=== PATIENT | female | born 1985 | race African-American/Black ===

== ENCOUNTER 2016-05-05 16:40 | Emergency (ER) | payer SELFPAY ==
[~2016-05-05] VITALS: Ht 165.1 cm; Wt 65.0 kg
[2016-05-05] MEDS ORDERED: DIPHENHYDRAMINE 50 MG INJ IV STA (16:49)
[2016-05-05] MEDS ORDERED: ONDANSETRON 4 MG INJ IV STA (16:49)
[2016-05-05 16:51] VITALS: Ht 165.1 cm; Wt 65.0 kg
[2016-05-05] MEDS ORDERED: DEXAMETHASONE 10 MG/ML 1 ML INJ IV ONE (17:00)
[2016-05-05 17:26] LABS: HEMATOCRIT 30.7 % (37.0-47.0); HEMOGLOBIN 9.2 g/dl (12.0-16.0); MEAN CORPUSCULAR HEMOGLOBIN 17.6 pg (29.0-33.0); MEAN CORPUSCULAR VOLUME 58.6 fl (82.0-101.0); MEAN PLATELET VOLUME 12.9 fl (7.4-10.4); PLATELET COUNT 329 10^3/UL (140-440); RED BLOOD COUNT 5.24 10^6/ul (4.20-5.40); RED CELL DISTRIBUTION WIDTH 22.3 % (11.5-14.5)
[2016-05-05 17:29] LABS: CONDITION 1; LH ANALYZER COMMENTS 1; SUSPECT 1
[2016-05-05 17:33] LABS: CREATININE 0.68 mg/dl (0.44-1.00)
[2016-05-05 17:34] LABS: CALCIUM 9.2 mg/dl (8.4-10.2)
[2016-05-05 17:38] LABS: INR 1.07; PARTIAL THROMBOPLASTIN TIME 28.3 Sec (25.0-35.0); PROTIME 13.9 Sec (12.2-14.2); PT RATIO 1.1
[2016-05-05 17:49] LABS: LYMPHOCYTES # 2.3 10^3/ul (0.8-2.9); MONOCYTE # 0.3 10^3/ul (0.3-0.9); NEUTROPHIL # 2.5 10^3/ul (1.6-7.5)
[2016-05-05 17:53] LABS: BURR CELLS 1+; OVALOCYTES 1+; TEAR DROP CELLS 1+
--- NOTE | 2016-05-05 18:05 | RADRPT ---
PROCEDURE: CT Brain without contrast. CLINICAL INDICATION: Headache, seizure TECHNIQUE: Routine CT scan of the brain was performed on a high resolution multi detector scanner without intravenous contrast. One or more of the following dose reduction techniques were used: Auto mated exposure control; Adjustment of the mA and/or kV according to patient size; Use of iterative r econstruction technique. CTDI = 44 mGy. DLP = 740 mGy-cm. COMPARISON: No prior relevant examinations are available for comparison. FINDINGS: Hemorrhage: No evidence of intracranial hemorrhage. Acute ischemic changes: No evidence of acute ischemic changes. Mass effect/Midline shift: None. Parenchymal volume: Within normal limits for age. Ventricular system: Concordant with parenchymal volume. Chronic changes: Parenchymal attenuation is within normal limits. Extracranial soft tissues: Unremarkable. Calvarium: No fractures. Paranasal sinuses: Visualized paranasal sinuses are clear. Mastoid air cells: Visualized mastoid air cells are clear. IMPRESSION: No acute intracranial abnormalities. Normal appearance the brain parenchyma MRI of the brain may be useful for further evaluation. RPTAT: AADD .Pramod Fitch MD, MD Date Time Electronically viewed and signed by .Pramod Fitch MD, MD on 05/05/2016 18:05 .B/
[2016-05-05] MEDS ORDERED: FIORICET PO (18:15)
--- NOTE | 2016-05-05 18:15 | ERD ---
ER Documentation Chief Complaint Date/Time DATE: 05/05/16 TIME: 18:12 Chief Complaint Seizure yesterday aox4 now HPI This is a 30-year-old female presents to the emergency room for evaluation of a seizure. This patient states that she does not have a history of seizures, she states that she had a seizure yesterday, one seizure today, she states that she was conscious during the seizure, and remembers having a seizure, and she remembers looking at the clock and timing along her seizures were. The patient states that now she has a mild headache which she localizes to the left portion of her head, she describes as an achy pain. She states she does not have any blurred vision or ringing in her ears associated with this. She denies any trauma to her head. ROS All systems reviewed and are negative except as per history of present illness. Medications Home Meds No Active Prescriptions or Reported Meds Allergies Allergies: Coded Allergies: Penicillins (Verified Allergy, Unknown, 05/05/16) PMhx/Soc Medical and Surgical Hx: pt denies Medical Hx, pt denies Surgical Hx Hx Alcohol Use: No Hx Substance Use: No Hx Tobacco Use: No Smoking Status: Current every day smoker Physical Exam Vitals Vital Signs Date Time Temp Pulse Resp B/P Pulse Ox O2 Delivery O2 Flow Rate FiO2 05/05/16 16:51 98.1 78 20 130/86 97 Physical Exam INITIAL VITAL SIGNS: Reviewed by me GENERAL: The patient is well developed and appropriate for usual state of health in no apparent distress HEENT: Pupils equal, round, and reactive to light. EOMI. There is no scleral icterus. NECK: C-spine is soft and supple, there is no meningismus. There is no cervical lymphadenopathy. LUNGS: Clear to auscultation bilaterally. There are no rales, wheezes or rhonchi. HEART: Regular rate and rhythm, no murmurs, clicks, rubs or gallops. ABDOMEN: Soft, non-tender, non-distended. There are bowel sounds in all four quadrants. No rebound or guarding. EXTREMITIES: There is no peripheral cyanosis or edema. No focal swelling or erythema. NEUROLOGICAL: The patient moves all four extremities with 5/5 strength. Cranial nerves II - XII are intact. Normal gait. Alert and oriented SKIN: There is no apparent rash or petechiae. HEME/LYMPHATIC: There is no evidence of excessive bruising or lymphedema. PSYCHIATRIC: The patient has a flat affect Result Diagram: 05/05/16 1703 05/05/16 1703 Results 24 hrs Laboratory Tests Test 05/05/16 17:03 Activated Partial Thromboplast Time 28.3Sec Anion Gap 17 Blood Morphology Comment Blood Urea Nitrogen 6mg/dl Calcium Level 9.2mg/dl Carbon Dioxide Level 24mmol/L Chloride Level 106mmol/L Creatinine 0.68mg/dl Glucose Level 86mg/dl Hematocrit 30.7% Hemoglobin 9.2g/dl INR International Normalized Ratio 1.07 Large Platelets 1+ Lymphocytes # 2.310^3/ul Lymphocytes % 46.0% Macrocytosis 1+ Mean Corpuscular Hemoglobin 17.6pg Mean Corpuscular Hemoglobin Concent 30.0g/dl Mean Corpuscular Volume 58.6fl Mean Platelet Volume 12.9fl Monocytes # 0.310^3/ul Monocytes % 5.0% Neutrophils # 2.510^3/ul Neutrophils % 49.0% Ovalocytes 1+ Platelet Count 14041^3/UL Potassium Level 4.0mmol/L Prothrombin Time 13.9Sec Prothrombin Time Ratio 1.1 Red Blood Count 5.2410^6/ul Red Cell Distribution Width 22.3% Sodium Level 143mmol/L Tear Drop Cells 1+ White Blood Count 5.010^3/ul Current Medications Medications (Trade) Dose Ordered Sig/Davonte Route PRN Reason Start Time Stop Time Status Last Admin Dose Admin Ondansetron HCl (Zofran Inj) 4 mg ONCE STAT IV 05/05/16 16:49 05/05/16 16:51 DC 05/05/16 17:09 Diphenhydramine HCl (Benadryl) 25 mg ONCE STAT IV 05/05/16 16:49 05/05/16 16:51 DC 05/05/16 17:12 Dexamethasone (Decadron) 10 mg ONCE ONCE IV 05/05/16 17:00 05/05/16 17:01 DC 05/05/16 17:12 Procedures/MDM CT head without: No acute intracranial abnormalities. Normal appearance the brain parenchyma MRI of the brain may be useful for further evaluation. This 30-year-old female presents to the emergency room for evaluation of possible seizures. This patient states that she was conscious and awake during her seizures and remembers them. I do not feel this patient actually had a seizure, rather she is suffering from complex migraine. She was given Benadryl , and Decadron here in the emergency room with almost complete resolution of her symptoms. This patient's CAT scan of her head is normal, she is alert and oriented to person place and time with no focal neurological deficits. This patient will be discharged home at this time with a prescription for Fioricet. Departure Diagnosis: Primary Impression: Migraine Additional Impression: Microcytic anemia Condition: Stable ARCADIO ORTIZ DO May 05, 2016 18:14
[2016-05-05 18:30] LABS: CANNABINOIDS Negative (NEGATIVE)
[2016-05-05 18:31] LABS: BARBITURATES Negative (NEGATIVE); BENZODIAZEPINES Negative (NEGATIVE); COCAINE Negative (NEGATIVE)
[2016-05-05 18:32] LABS: OPIATES Negative (NEGATIVE)
[2016-05-05 18:46] VITALS: BP 118/73; PULSE 94; RESP 16; TEMP 98.9
== END 2016-05-05 18:48 | disposition home or self-care (01) ==
LOC: EDBD 16:40 → E/R 16:40
DX: G43.909 Migraine, unspecified, not intractable, without status migrainosus (principal); D50.9 Iron deficiency anemia, unspecified; F17.210 Nicotine dependence, cigarettes, uncomplicated
CPT/HCPCS: 36415; 70450; 80048; 80307; 85025; 85610; 85730; 96374; 96375; 99285; J1100; J1200; J2405

== ENCOUNTER 2016-05-30 12:40 | Emergency (ER) | payer MEDICAID ==
[~2016-05-30] VITALS: Wt 81.0 kg
[~2016-05-30 12:40] MED LIST: FIORICET PO
[2016-05-30 15:20] LABS: ADD UMIC YES; URINE BILIRUBIN (Dip) NEGATIVE (NEGATIVE); URINE BLOOD (Dip) 1+ (NEGATIVE); URINE COLOR LT. YELLOW (YELLOW); URINE GLUCOSE (Dip) NEGATIVE (NEGATIVE); URINE KETONES (Dip) NEGATIVE (NEGATIVE); URINE LEUKOCYTE ESTERASE (Dip) NEGATIVE (NEGATIVE); URINE NITRITE (Dip) NEGATIVE (NEGATIVE); URINE TOTAL PROTEIN (Dip) NEGATIVE (NEGATIVE); URINE UROBILINOGEN (Dip) 0.2 E.U./dL (0.1-1.0)
[2016-05-30 15:24] LABS: HEMOGLOBIN 9.4 g/dl (12.0-16.0); MEAN CORPUSCULAR HEMOGLOBIN 17.7 pg (29.0-33.0); MEAN CORPUSCULAR HGB CONC 29.4 g/dl (32.0-37.0); MEAN CORPUSCULAR VOLUME 60.3 fl (82.0-101.0); MEAN PLATELET VOLUME 12.8 fl (7.4-10.4); PLATELET COUNT 350 10^3/UL (140-440); RED BLOOD COUNT 5.32 10^6/ul (4.20-5.40); UNCORRECTED WBC 6.1 10^3/ul (4.8-10.8); WHITE BLOOD COUNT 6.1 10^3/ul (4.8-10.8)
[2016-05-30 15:29] LABS: ALBUMIN 4.3 g/dl (3.3-4.9); POTASSIUM 3.8 mmol/L (3.5-5.1)
[2016-05-30 15:31] LABS: BILIRUBIN,INDIRECT 0.1 mg/dl (0-1.1); BILIRUBIN,TOTAL 0.1 mg/dl (0.2-1.3); CREATININE 0.66 mg/dl (0.44-1.00)
[2016-05-30 15:32] LABS: ALBUMIN/GLOBULIN RATIO 1.48; CALCIUM 9.5 mg/dl (8.4-10.2); TOTAL PROTEIN 7.2 g/dl (6.1-8.1)
[2016-05-30 15:38] LABS: BACTERIA,URINE FEW; SQUAMOUS EPITHELIAL CELL,UR MODERATE; URINE RBCS 0-2 /HPF (0)
--- NOTE | 2016-05-30 15:39 | RADRPT ---
PROCEDURE: CT Brain without. CLINICAL INDICATION: Headache after fall. Seizure. TECHNIQUE: A CT of the brain was performed on a multi-slice CT scanner utilizing axial sections fr om the skull base through the vertex without contrast. Coronal and sagittal reconstructed images w ere provided. One or more of the following does reduction techniques were used: Automated exposure control; adjustment of the mA and/or kV according to patient size; use of the aorta of reconstructi on technique. Images were reviewed on a high-resolution PACS workstation. The exam CTDI = 44.52 mGy . The exam DLP = 720.23 mGy-cm. COMPARISON: CT brain 05/05/2016 FINDINGS: The ventricles and sulci are symmetric and normal in size and morphology. There is no evidence of i ntracranial hemorrhage, mass effect, edema or midline shift. No abnormal intra-axial or extra-axial fluid collections are seen. The pool/white matter differentiation is well preserved. The osseous structures and visualized sinuses are unremarkable. The mastoid air cells are clear. Th e surrounding soft tissue scalp and bony calvarium are intact and normal. IMPRESSION: 1. Stable CT appearance of the brain compared to 05/05/2016 without evidence of acute intracranial pathology. RPTAT: KK .Reji Batres MD, Date Time Electronically viewed and signed by .Reji Batres MD, MD on 05/30/2016 15:38 .B/
--- NOTE | 2016-05-30 15:41 | RADRPT ---
PROCEDURE: CT cervical spine without contrast CLINICAL INDICATION: Neck pain after trauma. Seizure. TECHNIQUE: CT scan of the cervical spine was performed on a multi-slice scanner. No IV contrast w as administered. Coronal and sagittal reformatted images were obtained from the axial source images . Images were reviewed on a high-resolution PACS workstation. Exam CTDI = 22.14 mGy. Exam DLP = 425 .92 mGy-cm. COMPARISON: None available FINDINGS: There is straightening and reversal of the normal cervical lordosis. Alignment is otherwise intact. No acute fracture or dislocation is seen. The vertebral body heights are all well preserved. Disc heights are well maintained. Posterior elements structures are intact. The paraspinous soft tissues are unremarkable. No mass, hematoma, or other soft tissue abnormality is seen. IMPRESSION: 1. No CT evidence of acute fracture or subluxation. 2. Nonspecific straightening and reversal of the normal cervical lordosis. RPTAT: KK .Reji Batres MD, MD Date Time Electronically viewed and signed by .Reji Batres MD, on 05/30/2016 15:41 .B/
[2016-05-30 15:56] LABS: CONDITION 1; LH ANALYZER COMMENTS 1; SUSPECT 1
[2016-05-30 16:36] LABS: EOSINOPHILS # 0.1 10^3/ul (0.0-0.5); MONOCYTE # 0.4 10^3/ul (0.3-0.9); NEUTROPHIL # 4.6 10^3/ul (1.6-7.5)
[2016-05-30] MEDS ORDERED: MECL12.574 PO (16:57)
[2016-05-30] MEDS ORDERED: HYDR-906 PO (16:57)
[2016-05-30] MEDS ORDERED: FER325 PO (17:00)
--- NOTE | 2016-05-30 17:13 | ERD ---
ER Documentation Chief Complaint Date/Time DATE: 05/30/16 TIME: 17:08 Chief Complaint DIZZINESS AND FELL YESTERDAY. NECK AND LEFT ARM PAIN TODAY. R SIDE BENAVIDES. HPI This is a 30-year-old female presents to the ER stating that 2 days ago she began to feel dizzy and that she fell because of dizziness. Patient is also complaining of right-sided headache and facial pain. She is also complaining of neck pain and left arm pain that started today. States that she was here about one month ago after having a seizure. When she had the seizure she states she remembers entire seizure and was tightening seizure. Patient states that a week after she was seen here she had a second seizure however she was sleeping and didn't remember the seizure. She denies any nausea vomiting or diarrhea. She denies any loss of consciousness from her fall 2 days ago. She did not hit her head. She had a past medical she had migraines. She does smoke cigarettes. Patient never had a past medical history of seizures. ROS 12 point review of systems was done, all negative except per HPI. Medications Home Meds Active Scripts Ferrous Sulfate* (Ferrous Sulfate*) 325 Mg Tabec, 325 MG PO BID for 30 Days, TAB Prov:DWAIN,WAYNE C 05/30/16 Hydrocodone/Acetaminophen ([place] 5-325 Tablet) 1 Each Tablet, 1 TAB PO Q6H Y for PAIN, #10 TAB Prov:DWAIN,WAYNE C 05/30/16 Meclizine Hcl* (Antivert*) 12.5 Mg Tab, 12.5 MG PO Q6H Y for DIZZINESS, #20 TAB Prov:DWAINWAYNE C 05/30/16 Acetamin/Butalbital/Caffeine* (Fioricet*) [id number] Tab, 1 TAB PO Q6H Y for PAIN, #12 TAB Prov:ARCADIO ORTIZ DO 05/05/16 Allergies Allergies: Coded Allergies: Penicillins (Verified Allergy, Unknown, 05/30/16) PMhx/Soc Medical and Surgical Hx: pt denies Medical Hx, pt denies Surgical Hx Hx Alcohol Use: No Hx Substance Use: No Hx Tobacco Use: No Smoking Status: Never smoker Physical Exam Vitals Vital Signs Date Time Temp Pulse Resp B/P Pulse Ox O2 Delivery O2 Flow Rate FiO2 05/30/16 13:02 98.5 122 20 128/74 99 Physical Exam GENERAL: The patient is well developed and appropriate for usual state of health , in no apparent distress. HEENT: Atraumatic. Conjunctivae are pink. Pupils equal, round, and reactive to light. Extraocular muscles are grossly intact. Bilateral tympanic membranes are clear with no evidence of erythema, bulging or perforation. No sinus tenderness. NECK: C-spine is soft and supple. There is no cervical lymphadenopathy. CHEST: Clear to auscultation bilaterally. There are no rales, wheezes or rhonchi. HEART: Regular rate and rhythm. No murmurs, clicks, rubs or gallops. EXTREMITIES: Equal pulses bilaterally. There is no peripheral clubbing, cyanosis or edema. No focal swelling or erythema. Full range of motion. Grossly neurovascularly intact. NEURO: Alert and oriented. Cranial nerves II through XII are intact. Motor strength in all 4 extremities with 5/5 strength. Sensation grossly intact. Normal speech and gait. Negative Rhomberg. +2 DTRs. SKIN: There is no apparent rash or petechia. The skin is warm and dry. Result Diagram: 05/30/16 1455 05/30/16 1455 Results 24 hrs Laboratory Tests Test 05/30/16 14:55 Alanine Aminotransferase (ALT/SGPT) 29IU/L Albumin 4.3g/dl Albumin/Globulin Ratio 1.48 Alkaline Phosphatase 86IU/L Anion Gap 18 Aspartate Amino Transf (AST/SGOT) 21IU/L Blood Morphology Comment Blood Urea Nitrogen 5mg/dl Calcium Level 9.5mg/dl Carbon Dioxide Level 23mmol/L Chloride Level 108mmol/L Creatinine 0.66mg/dl Direct Bilirubin 0.00mg/dl Eosinophils # 0.110^3/ul Eosinophils % 2.0% Globulin 2.90g/dl Glucose Level 101mg/dl Hematocrit 32.0% Hemoglobin 9.4g/dl Indirect Bilirubin 0.1mg/dl Lymphocytes # 1.010^3/ul Lymphocytes % 16.0% Mean Corpuscular Hemoglobin 17.7pg Mean Corpuscular Hemoglobin Concent 29.4g/dl Mean Corpuscular Volume 60.3fl Mean Platelet Volume 12.8fl Monocytes # 0.410^3/ul Monocytes % 6.0% Neutrophils # 4.610^3/ul Neutrophils % 76.0% Platelet Count 31962^3/UL Potassium Level 3.8mmol/L Red Blood Count 5.3210^6/ul Red Cell Distribution Width 23.0% Sodium Level 145mmol/L Total Bilirubin 0.1mg/dl Total Protein 7.2g/dl Urine Bacteria FEW Urine Bilirubin NEGATIVE Urine Clarity SL.HAZY Urine Color LT. YELLOW Urine Glucose NEGATIVE% Urine Hemoglobin 1+ Urine Ketones NEGATIVE Urine Leukocyte Esterase NEGATIVE Urine Microscopic RBC 0-2/HPF Urine Microscopic WBC 0-2/HPF Urine Nitrite NEGATIVE Urine Specific [place] 1.020 Urine Squamous Epithelial Cells MODERATE Urine Total Protein NEGATIVE Urine Urobilinogen 0.2 E.U./dL Urine pH 6.0 White Blood Count 6.110^3/ul Procedures/MDM Differential Diagnosis includes but is not limited to; tension headache, migraine headache, cluster headache, sinus headache, nonspecific febrile headache, trigeminal neurologia, subdural hematoma, subarachnoid bleeding, meningitis, encephalitis. Patient is neurologically intact with no focal neurological deficits. Patient likely has a migraine headache. Patient has a history of migraine headaches. She is neurologically intact with no focal neurological deficits. Constipation neck pain and arm pain likely muscular in nature. CT scan and no evidence of abnormalities. Patient has full range of motion of her left shoulder, elbow, wrist and is nontender to palpation. Suspicion for seizure is low. Patient states she was awake throughout her entire seizure the first time and that she was asleep during the second closure. Discussed this case with my supervising physician Dr. Driscoll. She did have any new which could give her some dizziness. She'll be sent home with iron. EKG was done and read by [address] elevation no t wave inversion. CT scan was normal. Doubt acute intracranial pathology. Patient needs to follow-up with her primary care doctor return to ER sooner symptoms worsen. She was also told to follow-up with a neurologist as soon as possible. Departure Diagnosis: Primary Impression: Headache Condition: Stable Patient Instructions: Self-Care for Headaches Additional Instructions: Call your primary care doctor TOMORROW for an appointment during the next 1-2 days.See the doctor sooner or return here if your condition worsens before your appointment time. WAYNE PRAKASH May 30, 2016 17:13
[2016-05-30 18:00] VITALS: BP 130/76; PULSE 86; RESP 20; TEMP 98.7
== END 2016-05-30 18:06 | disposition home or self-care (01) ==
LOC: FTE 12:40
DX: R51 Headache (principal); S19.9XXA Unspecified injury of neck, initial encounter; S59.912A Unspecified injury of left forearm, initial encounter; F17.210 Nicotine dependence, cigarettes, uncomplicated; W19.XXXA Unspecified fall, initial encounter; Y92.9 Unspecified place or not applicable
CPT/HCPCS: 70450; 72125; 80053; 81001; 81003; 85025; 93005

== ENCOUNTER 2016-10-21 08:53 | Outpatient (CLI) | payer MEDICAID ==
[~2016-10-21] VITALS: Ht 167.6 cm; Wt 91.0 kg
[~2016-10-21 08:53] MED LIST changes: +FER325 PO; +HYDR-906 PO; +MECL12.574 PO
[2016-10-21 09:11] VITALS: Ht 167.6 cm; Wt 91.0 kg
[2016-10-21] MEDS ORDERED: PRENAT PO (09:11)
[2016-10-21 09:12] VITALS: BP 120/63; PULSE 104; RESP 18
[2016-10-21 10:15] LABS: ADD UMIC YES; UR ASCORBIC ACID NEGATIVE (NEGATIVE); UR BACTERIA FEW /HPF (NONE SEEN); UR BILIRUBIN (Dip) NEGATIVE (NEGATIVE); UR BLOOD (Dip) 3+ mg/dL (NEGATIVE); UR CLARITY CLOUDY (CLEAR); UR COLOR YELLOW (YELLOW); UR GLUCOSE (Dip) NEGATIVE (NEGATIVE); UR KETONES (Dip) TRACE mg/dL (NEGATIVE); UR LEUKOCYTE ESTERASE (Dip) NEGATIVE Leu/ul (NEGATIVE); UR NITRITE (Dip) NEGATIVE (NEGATIVE); UR RBC 8 /HPF (0-5); UR SPECIFIC GRAVITY (Dip) 1.025 (1.003-1.030); UR SQUAMOUS EPITHELIAL CELL FEW /HPF (FEW); UR TOTAL PROTEIN (Dip) 1+ mg/dl (NEGATIVE); UR UROBILINOGEN (Dip) NEGATIVE (NEGATIVE)
--- NOTE | 2016-10-21 10:17 | RADRPT ---
PROCEDURE: Limited OB ultrasound CLINICAL INDICATION: labor. TECHNIQUE: Sonographic evaluation to assess the cervical length was performed. Transabdominal andrey ging of the gravid uterus was performed. COMPARISON: No prior exam is available for comparison. FINDINGS: There is a single live intrauterine with cardiac activity, with a heart rate o f 168 bpm. position is transverse with head to the maternal left. The placenta is anterior. The cervix is closed with a length of 4.8 cm. IMPRESSION: The cervix is closed with a length of 4.8 cm. RPTAT: HH .Jazmine Garcia MD, MD Date Time Electronically viewed and signed by .Jazmine Garcia MD, on 10/21/2016 10:16 .G/
--- NOTE | 2016-10-21 11:03 | TRIAGE ---
OB Triage Datetime Report Generated by CPN: 10/21/2016 11:03 Datetime: 10/21/2016 09:09 Assessment Type: Triage Maternal Assessment Level of Consciousness: Fully Conscious DTR's/Clonus: DTRs 2+; No Clonus Headache: Denies Blurred Vision: No Respiratory Effort: Unlabored; Regular Rhythm; Equal Expansion Breath Sounds, Left: Clear and Equal Breath Sounds, Right: Clear and Equal Nausea/Vomiting: Denies RUQ Epigastric Pain: Denies Lower Extremities Edema: None Degree: None Upper Extremities Edema: None Degree: None Facial Edema: None Fall Risk Assessment History of Falling: (0) No Secondary Diagnosis: (0) No Ambulatory Aid: (0) Bedrest/Nurse Assist IV Therapy: (0) No Gait: (0) Normal/Bedrest/Immobile Mental Status: (0) Oriented to Own Ability Fall Score: 0 Fall Risk Score Definition: No Risk: No action required Datetime: 10/21/2016 09:08 Time of Arrival: 10/21/2016 08:48 EGA: 20.4 Arrived By: Ambulatory Arrived From: Home Chief Complaint: C/O SPOTTING X 1 OCCURENCE THIS AM Movement: Present Contractions: Denies/Absent Rupture of Membranes: Denies Vaginal Bleeding: Scant Vaginal Discharge: Denies Recent Sexual Intercouse: Denies Abdominal Trauma: Not Applicable Patient Complaints: None Time Provider Notified: 10/21/2016 09:41 Provider Notified: TARI Initial Plan: C-TOCO, FHT'S VIA DOPPLER, U/S FOR CVL. UA Datetime: 10/21/2016 09:00 Labor Evaluation Monitor Mode: External Heart Rate Monitor Mode: Doppler Comments: FHT'S DOPPLED IN THE 150'S
--- NOTE | 2016-10-21 11:20 | QN ---
Documentation Comment pt co of some spotting X1 no log no Ucx good Fm vss exam wnl US wnl ua neg a/p iup 20 weeks false labor er precaution LORETTA MADRIGAL MD Oct 21, 2016 11:20
== END 2016-10-21 11:10 | disposition home or self-care (01) ==
LOC: OBT 08:53 → L-D 08:55 → OBT 11:10
PROVIDERS: ATTEND Obstetrics & Gynecology
DX: O26.852 Spotting complicating pregnancy, second trimester (principal); O62.9 Abnormality of forces of labor, unspecified; O47.02 False labor before 37 completed weeks of gestation, second trimester; Z3A.20 20 weeks gestation of pregnancy
CPT/HCPCS: 76817; 81001; Z7500; G0463

== ENCOUNTER 2016-12-10 07:48 | Emergency (ER) | payer MEDICAID ==
[~2016-12-10] VITALS: Ht 170.2 cm; Wt 68.0 kg
[~2016-12-10 07:48] MED LIST changes: -FER325 PO; -FIORICET PO; -HYDR-906 PO; -MECL12.574 PO; +PRENAT PO
[2016-12-10 07:50] VITALS: Ht 170.2 cm; Wt 68.0 kg
[2016-12-10] MEDS ORDERED: HALOPERIDOL 5 MG INJ IM ONE (08:30)
--- NOTE | 2016-12-10 08:30 | ERA ---
ER Documentation Chief Complaint Date/Time DATE: 12/10/16 TIME: 08:29 Chief Complaint states wants to hurt herself HPI This is a 31-year-old female who is 20 weeks with her third child. She says she is here for suicidal thoughts. Patient has a history of 3 suicide attempts in the past starting in the year 2007. The first attempt was by drinking toilet bowl wallpaper cleaner, second attempt was trying to jump out of the window, the third attempt was trying to cut herself. Patient states she has been having suicidal thoughts for a while. She says she is not sure if she has a specific plan at this time. But she does admit that she does not want to live currently. She denies any headache chest pain shortness of breath cough fever. She also denies any abdominal pain pelvic pain, vaginal bleeding, vaginal discharge, pelvic cramping. She is currently not taking any antidepressants ROS All systems reviewed and are negative except as per history of present illness. Medications Home Meds Reported Medications Multivit/Min/Fol Ac/Iron/Pren* ( S*) 1 Tab Tab, 1 TAB PO DAILY, TAB 10/21/16 Allergies Allergies: Coded Allergies: Penicillins (Verified Allergy, Unknown, 12/10/16) PMhx/Soc History of Surgery: No Anesthesia Reaction: No Hx Neurological Disorder: No Hx Respiratory Disorders: No Hx Cardiac Disorders: No Hx Psychiatric Problems: Yes (depression and anxiety) Hx Miscellaneous Medical Probl: No Hx Alcohol Use: No Hx Substance Use: Yes (marijuana) Hx Tobacco Use: Yes Smoking Status: Current every day smoker FmHx Family History: No coronary disease Physical Exam Vitals Vital Signs Date Time Temp Pulse Resp B/P Pulse Ox O2 Delivery O2 Flow Rate FiO2 12/10/16 08:23 100 12/10/16 07:50 98.2 120 18 125/72 99 Physical Exam Const: Well-developed, well-nourished Head: Atraumatic, normocephalic Eyes: Normal Conjunctiva, PERRLA, EOMI, normal sclera, no nystagmus ENT: Normal External Ears, Nose and Mouth, moist mucus membranes. Neck: Full range of motion. No meningismus, no lymphadenopathy. Resp: Clear to auscultation bilaterally, no wheezing, rhonchi, rales Cardio: Regular rate and rhythm, no murmurs, S1 S2 present Abd: Soft, non tender x 4,, gravid, non distended. Normal bowel sounds , no guarding or rebound, no pulsitile abdominal masses or bruits Skin: No petechiae or rashes, no ecchymosis , no maculopapular rash Back: No midline or flank tenderness Ext: No cyanosis, or edema, FROM x 4, normal inspection, neurovascularly intact x 4 Neur: Awake and alert, STR 5/5 x 4, sensation intact x 4, no focal findings, cerebellum intact Psych: Normal Mood and Affect Result Diagram: 12/10/16 0812 12/10/16 0812 Results 24 hrs Laboratory Tests Test 12/10/16 07:10 12/10/16 08:12 Urine Color YELLOW Urine Clarity CLOUDY Urine pH 6.0 Urine Specific [place] 1.012 Urine Ketones NEGATIVEmg/dL Urine Nitrite NEGATIVEmg/dL Urine Bilirubin NEGATIVEmg/dL Urine Urobilinogen NEGATIVEmg/dL Urine Leukocyte Esterase 1+[place]/ul Urine Microscopic RBC 1/HPF Urine Microscopic WBC 17/HPF Urine Squamous Epithelial Cells MODERATE/HPF Urine Mucus FEW/HPF Urine Hemoglobin NEGATIVEmg/dL Urine Glucose NEGATIVEmg/dL Urine Total Protein 1+mg/dl Urine Opiates Screen Negative Urine Barbiturates Negative Urine Amphetamines Screen Negative Urine Benzodiazepines Screen Negative Urine Cocaine Screen Negative Urine Cannabinoids Negative White Blood Count 10.510^3/ul Red Blood Count 4.9410^6/ul Hemoglobin 9.9g/dl Hematocrit 33.5% Mean Corpuscular Volume 67.8fl Mean Corpuscular Hemoglobin 20.0pg Mean Corpuscular Hemoglobin Concent 29.6g/dl Red Cell Distribution Width 21.1% Platelet Count 99503^3/UL Mean Platelet Volume fl Neutrophils % 80.1% Lymphocytes % 12.9% Monocytes % 5.4% Eosinophils % 0.8% Basophils % 0.3% Nucleated Red Blood Cells % 0.0/100WBC Neutrophils # (Manual) 8.410^3/ul Lymphocytes # 1.410^3/ul Monocytes # 0.610^3/ul Eosinophils # 0.110^3/ul Basophils # 0.010^3/ul Nucleated Red Blood Cells # 0.010^3/ul Sodium Level 137mmol/L Potassium Level 3.7mmol/L Chloride Level 108mmol/L Carbon Dioxide Level 20mmol/L Anion Gap 13 Blood Urea Nitrogen 6mg/dl Creatinine 0.60mg/dl Glucose Level 84mg/dl Calcium Level 9.3mg/dl Total Bilirubin 0.1mg/dl Direct Bilirubin 0.00mg/dl Indirect Bilirubin 0.1mg/dl Aspartate Amino Transf (AST/SGOT) 20IU/L Alanine Aminotransferase (ALT/SGPT) 25IU/L Alkaline Phosphatase 97IU/L Total Protein 7.1g/dl Albumin 3.8g/dl Globulin 3.30g/dl Albumin/Globulin Ratio 1.15 Salicylates Level < 1.0mg/dl Acetaminophen Level < 10.0ug/ml Ethyl Alcohol Level < 10.0mg/dl Current Medications Medications (Trade) Dose Ordered Sig/Davonte Route PRN Reason Start Time Stop Time Status Last Admin Dose Admin Haloperidol (Haldol) 2.5 mg ONCE ONCE IM 12/10/16 08:30 12/10/16 08:31 Cancel Procedures/MDM We will order labs and sonogram to evaluate the fetus. We will have telemetry psychiatry evaluation and try to find a location for inpatient admission for suicidal patient Dr. Maldonado spoke with the patient and the patient will be admitted to inpatient psychiatry Departure Diagnosis: Primary Impression: Suicidal ideation Condition: Stable LARS SEWELL DO Dec 10, 2016 08:30
--- NOTE | 2016-12-10 09:06 | RADRPT ---
PROCEDURE: US OB. CLINICAL INDICATION: Size and dates TECHNIQUE: Multiple sonographic images of the pelvis and gravid uterus were obtained. The images were reviewed on a PACS workstation. COMPARISON: 10/21/2016 FINDINGS: There is a single viable intrauterine gestation. Cardiac activity is present with 140 beats per min [place] band. There is a vertex presentation. The placenta is anterior. There is no evidence for an abruption or placenta previa. MVP = 7.2 cm. Measurements were made in order to determine age. The results are as follows: BPD =6.6 cm HC =24.9 cm AC =23.9 cm FL =5.0 cm Estimated gestational age of approximately 27 weeks and 1 day based on ultrasound measurements. Clinical age: 28 weeks and 0 days. The estimated date of delivery is 03/10/17, based on ultrasound measurements. The EFW = 1087 g, 21%, based on LMP age. There are no adnexal masses. RPTAT: AA IMPRESSION: Single viable intrauterine gestation of approximately 27 weeks and 1 day based on ultrasound measur ements. .Jaswant Watters MD, MD Date Time Electronically viewed and signed by .Jaswant Watters MD, MD on 12/10/2016 09:06 .S/
--- NOTE | 2016-12-10 10:46 | PSY ---
Date/Time of Note Date/Time of Note DATE: 12/10/16 TIME: 10:42 Psychiatric Subjective Eval Consent Pt consented to telemedicine: Yes Subjective Evaluation Patient location: emergency Chief Complaint: states wants to hurt herself History of present illness 31 yo homeless AAF presentis to ED c/o Si w/o a plan. Pt is 28 wks . She is depressed, hopeless and helpless due to homelessness, no support. Pt denies Hi, no ah or vh. Poor sleep, low energy, low motivation, guilt. Past psychiatric history pt had inpt 2007; hx 3 SA, last one was 2007 Hospitalization: Suicidal Attempt(s) Family History denies Medical history Problems Medical Problems: (1) Headache Status: Acute (2) Microcytic anemia Status: Acute (3) Migraine Status: Acute (4) Suicidal ideation Status: Acute Allergies: Coded Allergies: Penicillins (Verified Allergy, Unknown, 12/10/16) Substance Abuse Substance use: No known substance abuse Social History Marital status: single Level of education: 10th DPA/Conservatorship: No Occupation/Care Home: unemployed, homeless, hx multiple arrests and incarcerations Psychiatric Objective Eval Physical Examination: Sleep: Insomnia Appetite: Decreased Energy: Decreased Interest: Decreased Mental Status Examination: Appearance: Disheveled Eye Contact: Good Psychomotor Activity: Normal Behavior: Cooperative Speech: Clear AFFECT: Depressed Mood: Depressed Though Process: Linear Thought Content: Normal Suicidal: Yes Homicidal: No On 72 hour hold: No Orientation: x4 Cognition: Alert Insight: Impared Judgement: Impared Laboratory Results Laboratory Tests Test 12/10/16 07:10 12/10/16 08:12 Urine Color YELLOW Urine Clarity CLOUDY Urine pH 6.0 Urine Specific [place] 1.012 Urine Ketones NEGATIVEmg/dL Urine Nitrite NEGATIVEmg/dL Urine Bilirubin NEGATIVEmg/dL Urine Urobilinogen NEGATIVEmg/dL Urine Leukocyte Esterase 1+[place]/ul Urine Microscopic RBC 1/HPF Urine Microscopic WBC 17/HPF Urine Squamous Epithelial Cells MODERATE/HPF Urine Mucus FEW/HPF Urine Hemoglobin NEGATIVEmg/dL Urine Glucose NEGATIVEmg/dL Urine Total Protein 1+mg/dl Urine Opiates Screen Negative Urine Barbiturates Negative Urine Amphetamines Screen Negative Urine Benzodiazepines Screen Negative Urine Cocaine Screen Negative Urine Cannabinoids Negative White Blood Count 10.510^3/ul Red Blood Count 4.9410^6/ul Hemoglobin 9.9g/dl Hematocrit 33.5% Mean Corpuscular Volume 67.8fl Mean Corpuscular Hemoglobin 20.0pg Mean Corpuscular Hemoglobin Concent 29.6g/dl Red Cell Distribution Width 21.1% Platelet Count 48366^3/UL Mean Platelet Volume fl Neutrophils % 80.1% Lymphocytes % 12.9% Monocytes % 5.4% Eosinophils % 0.8% Basophils % 0.3% Nucleated Red Blood Cells % 0.0/100WBC Neutrophils # (Manual) 8.410^3/ul Lymphocytes # 1.410^3/ul Monocytes # 0.610^3/ul Eosinophils # 0.110^3/ul Basophils # 0.010^3/ul Nucleated Red Blood Cells # 0.010^3/ul Sodium Level 137mmol/L Potassium Level 3.7mmol/L Chloride Level 108mmol/L Carbon Dioxide Level 20mmol/L Anion Gap 13 Blood Urea Nitrogen 6mg/dl Creatinine 0.60mg/dl Glucose Level 84mg/dl Calcium Level 9.3mg/dl Total Bilirubin 0.1mg/dl Direct Bilirubin 0.00mg/dl Indirect Bilirubin 0.1mg/dl Aspartate Amino Transf (AST/SGOT) 20IU/L Alanine Aminotransferase (ALT/SGPT) 25IU/L Alkaline Phosphatase 97IU/L Total Protein 7.1g/dl Albumin 3.8g/dl Globulin 3.30g/dl Albumin/Globulin Ratio 1.15 Salicylates Level < 1.0mg/dl Acetaminophen Level < 10.0ug/ml Ethyl Alcohol Level < 10.0mg/dl Assessment and Plan Assessment/Diagnosis [place] I: MAJOR DEPRESSIVE DISORDER RECURRENT SEVERE [place] II: DEFERED [place] III: 28 WKS [place] IV: SEVERE [place] V: GAF 25 Recommendation/Plan Medication Management DEFER TO INPT Psychotherapy DEFER TO INPT Follow-up/Disposition DTS; PLEASE TRANSFER TO INPT PSYCH. PT CAN ACCEPT INPT VOLUNTARY BUT CAN BE PLACED ON 5105 IF NEEDED FOR TRANSFER. [id number] Recommendation: ALLYSON JAY MD Dec 10, 2016 10:46
--- NOTE | 2016-12-10 10:46 | PSY ---
Date/Time of Note Date/Time of Note DATE: 12/10/16 TIME: 10:42 Psychiatric Subjective Eval Consent Pt consented to telemedicine: Yes Subjective Evaluation Patient location: emergency Chief Complaint: states wants to hurt herself History of present illness 31 yo homeless AAF presentis to ED c/o Si w/o a plan. Pt is 28 wks . She is depressed, hopeless and helpless due to homelessness, no support. Pt denies Hi, no ah or vh. Poor sleep, low energy, low motivation, guilt. Past psychiatric history pt had inpt 2007; hx 3 SA, last one was 2007 Hospitalization: Suicidal Attempt(s) Family History denies Medical history Problems Medical Problems: (1) Headache Status: Acute (2) Microcytic anemia Status: Acute (3) Migraine Status: Acute (4) Suicidal ideation Status: Acute Allergies: Coded Allergies: Penicillins (Verified Allergy, Unknown, 12/10/16) Substance Abuse Substance use: No known substance abuse Social History Marital status: single Level of education: 10th DPA/Conservatorship: No Occupation/Long Term: unemployed, homeless, hx multiple arrests and incarcerations Psychiatric Objective Eval Physical Examination: Sleep: Insomnia Appetite: Decreased Energy: Decreased Interest: Decreased Mental Status Examination: Appearance: Disheveled Eye Contact: Good Psychomotor Activity: Normal Behavior: Cooperative Speech: Clear AFFECT: Depressed Mood: Depressed Though Process: Linear Thought Content: Normal Suicidal: Yes Homicidal: No On 72 hour hold: No Orientation: x4 Cognition: Alert Insight: Impared Judgement: Impared Laboratory Results Laboratory Tests Test 12/10/16 07:10 12/10/16 08:12 Urine Color YELLOW Urine Clarity CLOUDY Urine pH 6.0 Urine Specific [place] 1.012 Urine Ketones NEGATIVEmg/dL Urine Nitrite NEGATIVEmg/dL Urine Bilirubin NEGATIVEmg/dL Urine Urobilinogen NEGATIVEmg/dL Urine Leukocyte Esterase 1+[place]/ul Urine Microscopic RBC 1/HPF Urine Microscopic WBC 17/HPF Urine Squamous Epithelial Cells MODERATE/HPF Urine Mucus FEW/HPF Urine Hemoglobin NEGATIVEmg/dL Urine Glucose NEGATIVEmg/dL Urine Total Protein 1+mg/dl Urine Opiates Screen Negative Urine Barbiturates Negative Urine Amphetamines Screen Negative Urine Benzodiazepines Screen Negative Urine Cocaine Screen Negative Urine Cannabinoids Negative White Blood Count 10.510^3/ul Red Blood Count 4.9410^6/ul Hemoglobin 9.9g/dl Hematocrit 33.5% Mean Corpuscular Volume 67.8fl Mean Corpuscular Hemoglobin 20.0pg Mean Corpuscular Hemoglobin Concent 29.6g/dl Red Cell Distribution Width 21.1% Platelet Count 58719^3/UL Mean Platelet Volume fl Neutrophils % 80.1% Lymphocytes % 12.9% Monocytes % 5.4% Eosinophils % 0.8% Basophils % 0.3% Nucleated Red Blood Cells % 0.0/100WBC Neutrophils # (Manual) 8.410^3/ul Lymphocytes # 1.410^3/ul Monocytes # 0.610^3/ul Eosinophils # 0.110^3/ul Basophils # 0.010^3/ul Nucleated Red Blood Cells # 0.010^3/ul Sodium Level 137mmol/L Potassium Level 3.7mmol/L Chloride Level 108mmol/L Carbon Dioxide Level 20mmol/L Anion Gap 13 Blood Urea Nitrogen 6mg/dl Creatinine 0.60mg/dl Glucose Level 84mg/dl Calcium Level 9.3mg/dl Total Bilirubin 0.1mg/dl Direct Bilirubin 0.00mg/dl Indirect Bilirubin 0.1mg/dl Aspartate Amino Transf (AST/SGOT) 20IU/L Alanine Aminotransferase (ALT/SGPT) 25IU/L Alkaline Phosphatase 97IU/L Total Protein 7.1g/dl Albumin 3.8g/dl Globulin 3.30g/dl Albumin/Globulin Ratio 1.15 Salicylates Level < 1.0mg/dl Acetaminophen Level < 10.0ug/ml Ethyl Alcohol Level < 10.0mg/dl Assessment and Plan Assessment/Diagnosis [place] I: MAJOR DEPRESSIVE DISORDER RECURRENT SEVERE [place] II: DEFERED [place] III: 28 WKS [place] IV: SEVERE [place] V: GAF 25 Recommendation/Plan Medication Management DEFER TO INPT Psychotherapy DEFER TO INPT Follow-up/Disposition DTS; PLEASE TRANSFER TO INPT PSYCH. PT CAN ACCEPT INPT VOLUNTARY BUT CAN BE PLACED ON 5105 IF NEEDED FOR TRANSFER. [id number] Recommendation: ALLYSON JAY MD Dec 10, 2016 10:46
--- NOTE | 2016-12-10 10:46 | PSY ---
Date/Time of Note Date/Time of Note DATE: 12/10/16 TIME: 10:42 Psychiatric Subjective Eval Consent Pt consented to telemedicine: Yes Subjective Evaluation Patient location: emergency Chief Complaint: states wants to hurt herself History of present illness 31 yo homeless AAF presentis to ED c/o Si w/o a plan. Pt is 28 wks . She is depressed, hopeless and helpless due to homelessness, no support. Pt denies Hi, no ah or vh. Poor sleep, low energy, low motivation, guilt. Past psychiatric history pt had inpt 2007; hx 3 SA, last one was 2007 Hospitalization: Suicidal Attempt(s) Family History denies Medical history Problems Medical Problems: (1) Headache Status: Acute (2) Microcytic anemia Status: Acute (3) Migraine Status: Acute (4) Suicidal ideation Status: Acute Allergies: Coded Allergies: Penicillins (Verified Allergy, Unknown, 12/10/16) Substance Abuse Substance use: No known substance abuse Social History Marital status: single Level of education: 10th DPA/Conservatorship: No Occupation/Senior Care: unemployed, homeless, hx multiple arrests and incarcerations Psychiatric Objective Eval Physical Examination: Sleep: Insomnia Appetite: Decreased Energy: Decreased Interest: Decreased Mental Status Examination: Appearance: Disheveled Eye Contact: Good Psychomotor Activity: Normal Behavior: Cooperative Speech: Clear AFFECT: Depressed Mood: Depressed Though Process: Linear Thought Content: Normal Suicidal: Yes Homicidal: No On 72 hour hold: No Orientation: x4 Cognition: Alert Insight: Impared Judgement: Impared Laboratory Results Laboratory Tests Test 12/10/16 07:10 12/10/16 08:12 Urine Color YELLOW Urine Clarity CLOUDY Urine pH 6.0 Urine Specific [place] 1.012 Urine Ketones NEGATIVEmg/dL Urine Nitrite NEGATIVEmg/dL Urine Bilirubin NEGATIVEmg/dL Urine Urobilinogen NEGATIVEmg/dL Urine Leukocyte Esterase 1+[place]/ul Urine Microscopic RBC 1/HPF Urine Microscopic WBC 17/HPF Urine Squamous Epithelial Cells MODERATE/HPF Urine Mucus FEW/HPF Urine Hemoglobin NEGATIVEmg/dL Urine Glucose NEGATIVEmg/dL Urine Total Protein 1+mg/dl Urine Opiates Screen Negative Urine Barbiturates Negative Urine Amphetamines Screen Negative Urine Benzodiazepines Screen Negative Urine Cocaine Screen Negative Urine Cannabinoids Negative White Blood Count 10.510^3/ul Red Blood Count 4.9410^6/ul Hemoglobin 9.9g/dl Hematocrit 33.5% Mean Corpuscular Volume 67.8fl Mean Corpuscular Hemoglobin 20.0pg Mean Corpuscular Hemoglobin Concent 29.6g/dl Red Cell Distribution Width 21.1% Platelet Count 12149^3/UL Mean Platelet Volume fl Neutrophils % 80.1% Lymphocytes % 12.9% Monocytes % 5.4% Eosinophils % 0.8% Basophils % 0.3% Nucleated Red Blood Cells % 0.0/100WBC Neutrophils # (Manual) 8.410^3/ul Lymphocytes # 1.410^3/ul Monocytes # 0.610^3/ul Eosinophils # 0.110^3/ul Basophils # 0.010^3/ul Nucleated Red Blood Cells # 0.010^3/ul Sodium Level 137mmol/L Potassium Level 3.7mmol/L Chloride Level 108mmol/L Carbon Dioxide Level 20mmol/L Anion Gap 13 Blood Urea Nitrogen 6mg/dl Creatinine 0.60mg/dl Glucose Level 84mg/dl Calcium Level 9.3mg/dl Total Bilirubin 0.1mg/dl Direct Bilirubin 0.00mg/dl Indirect Bilirubin 0.1mg/dl Aspartate Amino Transf (AST/SGOT) 20IU/L Alanine Aminotransferase (ALT/SGPT) 25IU/L Alkaline Phosphatase 97IU/L Total Protein 7.1g/dl Albumin 3.8g/dl Globulin 3.30g/dl Albumin/Globulin Ratio 1.15 Salicylates Level < 1.0mg/dl Acetaminophen Level < 10.0ug/ml Ethyl Alcohol Level < 10.0mg/dl Assessment and Plan Assessment/Diagnosis [place] I: MAJOR DEPRESSIVE DISORDER RECURRENT SEVERE [place] II: DEFERED [place] III: 28 WKS [place] IV: SEVERE [place] V: GAF 25 Recommendation/Plan Medication Management DEFER TO INPT Psychotherapy DEFER TO INPT Follow-up/Disposition DTS; PLEASE TRANSFER TO INPT PSYCH. PT CAN ACCEPT INPT VOLUNTARY BUT CAN BE PLACED ON 5105 IF NEEDED FOR TRANSFER. [id number] Recommendation: ALLYSON JAY MD Dec 10, 2016 10:46
[2016-12-10] MEDS ORDERED: FAMOTIDINE 20 MG INJ IV STA (22:00)
[2016-12-11 10:50] VITALS: BP 112/64; PULSE 70; RESP 18; TEMP 98.2
--- NOTE | 2016-12-11 12:19 | EN ---
Date/Time of Note Date/Time of Note DATE: 12/11/16 TIME: 12:17 ER Progress Note That she is not suicidal at this time. She is been reevaluated by tele-psych physician who states this patient can be discharged safely at this time. Patient does feel comfortable being discharged at this time with resources ARCADIO ORTIZ DO Dec 11, 2016 12:19
--- NOTE | 2016-12-11 13:05 | PSY ---
Date/Time of Note Date/Time of Note DATE: 12/11/16 TIME: 11:46 Psychiatric Subjective Eval Consent Pt consented to telemedicine: Yes Subjective Evaluation Patient location: emergency Chief Complaint: states wants to hurt herself Reason for consult: fear of being suicidal History of present illness This is a 31 year old female who has been homeless for the past year. She is also at 28 week gestation. She denied any history of problems with substance use. She presented to the ED in hopes of getting treatment as well as assistance for housing. She states that she has had a history of recurrent depression. She states veronika she has been feeling progressively more depressed while homeless and . She said that she came to the ED as she was concerned for the safety of her and the child. She was seen and evaluated by Dr. Maldonado, who recommended that the patient be admitted for inpatient care and placed on a 5150. Since her presentation to the ED, she has been cooperative with treatment and received assistance from social service where she will be referred to have housing, and assistance for her to receive aid so that she can be more autonomous and not homeless. Past psychiatric history She said that she was treated for depression in the past which was about 8 years ago. Her last suicide attempt was in 2007. She has had 3 suicide attempts. Hospitalization: yes Family History She was informed that her grandmother's sister may have had some mental disorder. Medical history Problems Medical Problems: (1) Headache Status: Acute (2) Microcytic anemia Status: Acute (3) Migraine Status: Acute (4) Suicidal ideation Status: Acute Allergies: Coded Allergies: Penicillins (Verified Allergy, Unknown, 12/10/16) Substance Abuse Substance use: No known substance abuse Social History Marital status: single Level of education: 10th DPA/Conservatorship: No Occupation/Assisted: unemployed, homeless, hx multiple arrests and incarcerations Psychiatric Objective Eval Review of Systems: Review of Systems: Not Applicable Constitutional: Normal Eyes: Normal ENT: Normal Neck: Normal Respiratory: Normal Chest/Breast: Normal Cardiovascular: Normal GI: Normal Genitourinary: Normal Skin: Normal Lymphatic: Normal Musculoskeletal: Normal Neurological: Normal Physical Examination: Physical Examination: Not Applicable Sleep: Adequate Appetite: Adequate Energy: Adequate Interest: Adequate Mental Status Examination: Appearance: Groomed Eye Contact: Good Behavior: Cooperative Speech: Clear AFFECT: Appropriate Mood: Appropriate/Full Though Process: Linear Thought Content: Normal Suicidal: No Homicidal: No On 72 hour hold: Yes Orientation: x4 Cognition: Alert Insight: Intact Judgement: Intact Attention Span: Intact Laboratory Results Laboratory Tests Test 12/10/16 07:10 12/10/16 08:12 Urine Color YELLOW Urine Clarity CLOUDY Urine pH 6.0 Urine Specific [place] 1.012 Urine Ketones NEGATIVEmg/dL Urine Nitrite NEGATIVEmg/dL Urine Bilirubin NEGATIVEmg/dL Urine Urobilinogen NEGATIVEmg/dL Urine Leukocyte Esterase 1+[place]/ul Urine Microscopic RBC 1/HPF Urine Microscopic WBC 17/HPF Urine Squamous Epithelial Cells MODERATE/HPF Urine Mucus FEW/HPF Urine Hemoglobin NEGATIVEmg/dL Urine Glucose NEGATIVEmg/dL Urine Total Protein 1+mg/dl Urine Opiates Screen Negative Urine Barbiturates Negative Urine Amphetamines Screen Negative Urine Benzodiazepines Screen Negative Urine Cocaine Screen Negative Urine Cannabinoids Negative White Blood Count 10.510^3/ul Red Blood Count 4.9410^6/ul Hemoglobin 9.9g/dl Hematocrit 33.5% Mean Corpuscular Volume 67.8fl Mean Corpuscular Hemoglobin 20.0pg Mean Corpuscular Hemoglobin Concent 29.6g/dl Red Cell Distribution Width 21.1% Platelet Count 92311^3/UL Mean Platelet Volume fl Neutrophils % 80.1% Lymphocytes % 12.9% Monocytes % 5.4% Eosinophils % 0.8% Basophils % 0.3% Nucleated Red Blood Cells % 0.0/100WBC Neutrophils # (Manual) 8.410^3/ul Lymphocytes # 1.410^3/ul Monocytes # 0.610^3/ul Eosinophils # 0.110^3/ul Basophils # 0.010^3/ul Nucleated Red Blood Cells # 0.010^3/ul Sodium Level 137mmol/L Potassium Level 3.7mmol/L Chloride Level 108mmol/L Carbon Dioxide Level 20mmol/L Anion Gap 13 Blood Urea Nitrogen 6mg/dl Creatinine 0.60mg/dl Glucose Level 84mg/dl Calcium Level 9.3mg/dl Total Bilirubin 0.1mg/dl Direct Bilirubin 0.00mg/dl Indirect Bilirubin 0.1mg/dl Aspartate Amino Transf (AST/SGOT) 20IU/L Alanine Aminotransferase (ALT/SGPT) 25IU/L Alkaline Phosphatase 97IU/L Total Protein 7.1g/dl Albumin 3.8g/dl Globulin 3.30g/dl Albumin/Globulin Ratio 1.15 Salicylates Level < 1.0mg/dl Acetaminophen Level < 10.0ug/ml Ethyl Alcohol Level < 10.0mg/dl Assessment and Plan Assessment/Diagnosis [place] I: F33.1 Major depression, moderate recurrent without psychotic features. [place] II: No psychiatric diagnosis [place] III: 28 week gestation [place] IV: Problems with housing and employment. [place] V: 60 Recommendation/Plan Medication Management she was not receptive to medications at this time. Psychotherapy She should be informed of [email or web address] This is a good resource for women throughout their life cycle. Follow-up/Disposition she has been referred to a longterm. She no longer meets 5150 criteria. She denies suicidal or homicidal ideation, intent or plan. She has a plan to care for herself. 5150 Recommendation: CELESTINA Medellin MD Dec 11, 2016 12:56
--- NOTE | 2016-12-11 13:05 | PSY ---
Date/Time of Note Date/Time of Note DATE: 12/11/16 TIME: 11:46 Psychiatric Subjective Eval Consent Pt consented to telemedicine: Yes Subjective Evaluation Patient location: emergency Chief Complaint: states wants to hurt herself Reason for consult: fear of being suicidal History of present illness This is a 31 year old female who has been homeless for the past year. She is also at 28 week gestation. She denied any history of problems with substance use. She presented to the ED in hopes of getting treatment as well as assistance for housing. She states that she has had a history of recurrent depression. She states veronika she has been feeling progressively more depressed while homeless and . She said that she came to the ED as she was concerned for the safety of her and the child. She was seen and evaluated by Dr. Maldonado, who recommended that the patient be admitted for inpatient care and placed on a 5150. Since her presentation to the ED, she has been cooperative with treatment and received assistance from social service where she will be referred to have housing, and assistance for her to receive aid so that she can be more autonomous and not homeless. Past psychiatric history She said that she was treated for depression in the past which was about 8 years ago. Her last suicide attempt was in 2007. She has had 3 suicide attempts. Hospitalization: yes Family History She was informed that her grandmother's sister may have had some mental disorder. Medical history Problems Medical Problems: (1) Headache Status: Acute (2) Microcytic anemia Status: Acute (3) Migraine Status: Acute (4) Suicidal ideation Status: Acute Allergies: Coded Allergies: Penicillins (Verified Allergy, Unknown, 12/10/16) Substance Abuse Substance use: No known substance abuse Social History Marital status: single Level of education: 10th DPA/Conservatorship: No Occupation/[employer]: unemployed, homeless, hx multiple arrests and incarcerations Psychiatric Objective Eval Review of Systems: Review of Systems: Not Applicable Constitutional: Normal Eyes: Normal ENT: Normal Neck: Normal Respiratory: Normal Chest/Breast: Normal Cardiovascular: Normal GI: Normal Genitourinary: Normal Skin: Normal Lymphatic: Normal Musculoskeletal: Normal Neurological: Normal Physical Examination: Physical Examination: Not Applicable Sleep: Adequate Appetite: Adequate Energy: Adequate Interest: Adequate Mental Status Examination: Appearance: Groomed Eye Contact: Good Behavior: Cooperative Speech: Clear AFFECT: Appropriate Mood: Appropriate/Full Though Process: Linear Thought Content: Normal Suicidal: No Homicidal: No On 72 hour hold: Yes Orientation: x4 Cognition: Alert Insight: Intact Judgement: Intact Attention Span: Intact Laboratory Results Laboratory Tests Test 12/10/16 07:10 12/10/16 08:12 Urine Color YELLOW Urine Clarity CLOUDY Urine pH 6.0 Urine Specific [place] 1.012 Urine Ketones NEGATIVEmg/dL Urine Nitrite NEGATIVEmg/dL Urine Bilirubin NEGATIVEmg/dL Urine Urobilinogen NEGATIVEmg/dL Urine Leukocyte Esterase 1+[place]/ul Urine Microscopic RBC 1/HPF Urine Microscopic WBC 17/HPF Urine Squamous Epithelial Cells MODERATE/HPF Urine Mucus FEW/HPF Urine Hemoglobin NEGATIVEmg/dL Urine Glucose NEGATIVEmg/dL Urine Total Protein 1+mg/dl Urine Opiates Screen Negative Urine Barbiturates Negative Urine Amphetamines Screen Negative Urine Benzodiazepines Screen Negative Urine Cocaine Screen Negative Urine Cannabinoids Negative White Blood Count 10.510^3/ul Red Blood Count 4.9410^6/ul Hemoglobin 9.9g/dl Hematocrit 33.5% Mean Corpuscular Volume 67.8fl Mean Corpuscular Hemoglobin 20.0pg Mean Corpuscular Hemoglobin Concent 29.6g/dl Red Cell Distribution Width 21.1% Platelet Count 71299^3/UL Mean Platelet Volume fl Neutrophils % 80.1% Lymphocytes % 12.9% Monocytes % 5.4% Eosinophils % 0.8% Basophils % 0.3% Nucleated Red Blood Cells % 0.0/100WBC Neutrophils # (Manual) 8.410^3/ul Lymphocytes # 1.410^3/ul Monocytes # 0.610^3/ul Eosinophils # 0.110^3/ul Basophils # 0.010^3/ul Nucleated Red Blood Cells # 0.010^3/ul Sodium Level 137mmol/L Potassium Level 3.7mmol/L Chloride Level 108mmol/L Carbon Dioxide Level 20mmol/L Anion Gap 13 Blood Urea Nitrogen 6mg/dl Creatinine 0.60mg/dl Glucose Level 84mg/dl Calcium Level 9.3mg/dl Total Bilirubin 0.1mg/dl Direct Bilirubin 0.00mg/dl Indirect Bilirubin 0.1mg/dl Aspartate Amino Transf (AST/SGOT) 20IU/L Alanine Aminotransferase (ALT/SGPT) 25IU/L Alkaline Phosphatase 97IU/L Total Protein 7.1g/dl Albumin 3.8g/dl Globulin 3.30g/dl Albumin/Globulin Ratio 1.15 Salicylates Level < 1.0mg/dl Acetaminophen Level < 10.0ug/ml Ethyl Alcohol Level < 10.0mg/dl Assessment and Plan Assessment/Diagnosis [place] I: F33.1 Major depression, moderate recurrent without psychotic features. [place] II: No psychiatric diagnosis [place] III: 28 week gestation [place] IV: Problems with housing and employment. [place] V: 60 Recommendation/Plan Medication Management she was not receptive to medications at this time. Psychotherapy She should be informed of [email or web address] This is a good resource for women throughout their life cycle. Follow-up/Disposition she has been referred to a half-way. She no longer meets 5150 criteria. She denies suicidal or homicidal ideation, intent or plan. She has a plan to care for herself. 5150 Recommendation: CELESTINA Medellin MD Dec 11, 2016 12:56
== END 2016-12-11 12:29 | disposition home or self-care (01) ==
LOC: E/R 07:48
DX: R45.851 Suicidal ideations (principal); F17.210 Nicotine dependence, cigarettes, uncomplicated
CPT/HCPCS: 36415; 76805; 80053; 80306; 80307; 81001; 85025; 96374; Z7502; Z7610

== ENCOUNTER 2017-01-28 06:35 | Outpatient (CLI) | payer MEDICAID ==
[~2017-01-28] VITALS: Ht 167.6 cm; Wt 99.2 kg
[2017-01-28 07:02] VITALS: BP 120/60; PULSE 99; RESP 18; Ht 167.6 cm; Wt 99.2 kg
[2017-01-28] MEDS ORDERED: LACTATED RINGER'S 1,000 ML IV ONE (08:30)
[2017-01-28] MEDS: TERBUTALINE 1 MG/ML INJ SC PRN ×2 (08:42→09:20)
--- NOTE | 2017-01-28 09:09 | RADRPT ---
PROCEDURE: OB ultrasound for biophysical profile CLINICAL INDICATION: labor TECHNIQUE: Multiple sonographic images of the pelvis were obtained. Transabdominal views of the g ravid uterus are available for review. The images were reviewed on a PACS workstation. COMPARISON: None FINDINGS: breathing movement = 2/2 tone = 2/2 motion = 2/2 MARIA = 2/2 MARIA = 16.7 cm Single live intrauterine with cardiac activity of 139 bpm. position is breech . The placenta is anterior. IMPRESSION: 1. Single live intrauterine gestation. 2. Biophysical profile = 8/8. 3. MARIA = 16.7 cm. 4. Breech presentation. RPTAT: HH .Jazmine Garcia MD, Date Time Electronically viewed and signed by .Jazmine Garcia MD, on 01/28/2017 09:09 .G/
--- NOTE | 2017-01-28 10:20 | TRIAGE ---
OB Triage Datetime Report Generated by CPN: 01/28/2017 10:20 Datetime: 01/28/2017 09:30 Stage of : OB Triage Maternal Assessment Level of Consciousness: Fully Conscious Labor Evaluation Frequency: OCCASIONAL Monitor Mode: External Duration (sec)2399: 30-70 Quality: Mild Resting Tone [place]: Relaxed Heart Rate FHR Baseline Rate: 140 Monitor Mode: External US Variability: Moderate 6-25 bpm Accelerations: 15X15 Decelerations: None Pain Assessment Pain Scale: 3 Pain Presence: Intermittent Pain Type: Cramping Pain Location: Abdomen Pain Goal: 3 Pain Relief Measures: Comfort Measures Vaginal Bleeding: None Datetime: 01/28/2017 08:30 Stage of : OB Triage Maternal Assessment Level of Consciousness: Fully Conscious Labor Evaluation Frequency: IRREGULAR Monitor Mode: External Duration (sec)2399: 30-80 Quality: Mild Resting Tone [place]: Relaxed Heart Rate FHR Baseline Rate: 135 Monitor Mode: External US Variability: Moderate 6-25 bpm Accelerations: 15X15 Decelerations: None Pain Assessment Pain Scale: 3 Pain Presence: Intermittent Pain Type: Cramping Pain Location: Abdomen Pain Goal: 3 Pain Relief Measures: Comfort Measures Vaginal Bleeding: None Datetime: 01/28/2017 07:58 Vaginal Exam Dilatation (cms): 0.0 Exam By: KHEMANI Pool: Negative Datetime: 01/28/2017 07:47 EGA: 34.5 Datetime: 01/28/2017 07:30 Stage of : OB Triage Maternal Assessment Level of Consciousness: Fully Conscious Labor Evaluation Frequency: 2-9 Monitor Mode: External Duration (sec)2399: 30-60 Quality: Mild Resting Tone [place]: Relaxed Heart Rate FHR Baseline Rate: 125 Monitor Mode: External US Variability: Moderate 6-25 bpm Accelerations: 15X15 Decelerations: None Category: Category I Pain Assessment Pain Scale: 3 Pain Presence: Intermittent Pain Type: Cramping Pain Location: Abdomen Pain Goal: 3 Pain Relief Measures: Comfort Measures Vaginal Bleeding: None Datetime: 01/28/2017 06:57 Assessment Type: Triage Maternal Assessment Level of Consciousness: Fully Conscious DTR's/Clonus: DTRs 2+; No Clonus Headache: Denies Blurred Vision: No Respiratory Effort: Unlabored; Regular Rhythm; Equal Expansion Breath Sounds, Left: Clear and Equal Breath Sounds, Right: Clear and Equal Nausea/Vomiting: Denies RUQ Epigastric Pain: Denies Lower Extremities Edema: None Degree: None Upper Extremities Edema: None Degree: None Facial Edema: None Fall Risk Assessment History of Falling: (0) No Secondary Diagnosis: (0) No Ambulatory Aid: (0) Bedrest/Nurse Assist IV Therapy: (0) No Gait: (0) Normal/Bedrest/Immobile Mental Status: (0) Oriented to Own Ability Fall Score: 0 Fall Risk Score Definition: No Risk: No action required Datetime: 01/28/2017 06:56 Time of Arrival: 01/28/2017 06:30 EGA: 34.5 Arrived By: Ambulatory Arrived From: Home Chief Complaint: pt here c/o uc's and possible leaking Movement: Present Contractions: Irregular Rupture of Membranes: Unsure Vaginal Bleeding: None Vaginal Discharge: Denies Recent Sexual Intercouse: Denies Abdominal Trauma: Not Applicable Patient Complaints: Contractions; Cramping; Back Pain Time Provider Notified: 01/28/2017 08:08 Provider Notified: TARI Initial Plan: EFM/ROM PLUS/BPP/STERILE SPEC/TERB/IV HYDRATION Datetime: 01/28/2017 06:54 Monitor Mode: External Monitor Mode: External US Datetime: 10/21/2016 09:09 Fall Score: 0 Fall Risk Score Definition: No Risk: No action required Datetime: 10/21/2016 09:08 EGA: 20.4
--- NOTE | 2017-01-28 10:50 | CONS ---
Date/Time of Note Date/Time of Note DATE: 01/28/17 TIME: 10:42 Consultation Date/Type/Reason Admit Date/Time January 28, 2007 OB triage consult This patient is 31 years old 4 para 2 living 2 1 who was her previous 2 deliveries by section and 2010 her estimated date of confinement is March 06, 2017 which makes it about 34 weeks and 5 days. She came to triage complaining of contractions and leaking of fluid vaginally on taking the history she says she is allergic to penicillin as I mentioned her previous deliveries were by section on review her records her blood type is a positive hepatitis B surface antigen negative HIV negative RPR negative rubella she is immune for chlamydia and gonorrhea were both negative. On physical examination her general vital signs are within normal limits with blood pressure 120/60 pulse rate 99 respiration 18 and temperature was 98.4 She was regan somewhere between 3-9 minutes. Complaining of the level of pain as 3/10. On pelvic examination the cervix was closed thick and hollowing there did not appear to be any rupture of amniotic membranes. Reason for Consultation Laboratory Tests Test 01/28/17 08:13 Membranes Rupture NEGATIVE Current Medications Medications (Trade) Dose Ordered Sig/Davonte Route PRN Reason Start Time Stop Time Status Last Admin Dose Admin Lactated Ringer's (Lr) 1,000 ml @ 1,000 mls/hr Q1H ONCE IV 01/28/17 08:30 01/28/17 09:29 DC 01/28/17 08:29 1,000 MLS/HR Terbutaline Sulfate (Brethine) 0.25 mg PRN PRN SC PAIN 01/28/17 09:00 01/28/17 10:31 DC 01/28/17 09:20 0.25 MG Constitutional: No chills, No diaphoresis, No disoriented, No febrile, No improved, No no complaints, No other, No poor po, No requiring IVF, No requiring O2 Eyes: No discharge, No no complaints, No other, No pain, No redness, No visual change ENT: No bleeding, No congestion, No discharge, No dysphagia, No no complaints, No other, No pain, No sore throat Respiratory: No cough, No no complaints, No other, No pain, No pleuritic pain, No shortness of breath, No sputum, No wheezing Cardiovascular: No chest pain, No edema, No lightheadedness, No no complaints, No orthopenea, No other, No palpitations, No paroxysmal nocturnal dyspnea Gastrointestinal: No blood, No constipation, No decreased appetite, No diarrhea , No flatus, No nausea, No no complaints, No other, No pain, No passing stool, No vomiting Genitourinary: other (As I mentioned on pelvic examination the cervix was closed thick and hollowing), No bleeding, No discharge, No dysuria, No flank pain, No hematuria, No no complaints Musculoskeletal: No back pain, No bone/joint pain, No neck pain, No no complaints, No other, No restricted range of motion, No swelling Skin: No bruising, No erythema, No laceration, No no complaints, No other, No pruritis, No rash, No skin lesions Neurologic: other (Her knee jerk reflex were negative), No confusion, No dizziness, No focal-weakness, No headache, No no complaints , No seizure, No syncope Endocrine: No dry skin, No no complaints, No other, No polydypsia, No polyuria , No temp intolerance Additional Comments . We did a test for possible rupture of membranes are normal plus came back negative On ultrasound study report was a single live intrauterine with heart activity 139 bpm in breech presentation placenta was anterior amniotic fluid index was 16.7 cm. The biophysical profile was 8/8. .: Disposition: with these normal finding patient was discharged home to be followed in the clinic Social History Smoking Status: Current every day smoker Exam/Review of Systems Vital Signs Vitals Vital Signs Date Time Temp Pulse Resp B/P Pulse Ox O2 Delivery O2 Flow Rate FiO2 01/28/17 07:02 98.4 99 18 120/60 Room Air Results Results 24 hrs Laboratory Tests Test 01/28/17 08:13 Membranes Rupture NEGATIVE SANDIP LOPEZ MD Jan 28, 2017 10:50
== END 2017-01-28 10:30 | disposition home or self-care (01) ==
LOC: OBT 06:35 → L-D 06:35 → OBT 10:30
PROVIDERS: ATTEND Obstetrics & Gynecology
DX: O62.9 Abnormality of forces of labor, unspecified (principal); O41.93X0 Disorder of amniotic fluid and membranes, unspecified, third trimester, not applicable or unspecified; O34.219 Maternal care for unspecified type scar from previous cesarean delivery; Z3A.34 34 weeks gestation of pregnancy
CPT/HCPCS: 36415; 76818; 84112; 96360; 96372; J3105; J7120; Z7500; G0463